=== PATIENT | male | born 1970 | race Hispanic/Latino ===

== ENCOUNTER 2020-07-20 16:19 | Emergency (ER) | payer BC ==
[2020-07-20 17:49] LABS: Absolute Lymphocytes (CBC) 2.1 K/uL (0.7-4.9); Basophils % 0.7 % (0-1.3); Hematocrit 43.7 % (39.6-49.0); MPV 8.5 fL (7.6-11.3)
[2020-07-20 18:12] LABS: ALT/SGPT 44 U/L (12-78); AST/SGOT 12 U/L (15-37); Albumin 3.6 g/dL (3.4-5.0); Alkaline Phosphatase 57 U/L (45-117); BUN Blood Urea Nitrogen 12 mg/dL (7-18); Bicarbonate 28 mmol/L (21-32); Bilirubin Direct 0.2 mg/dL (0-0.2); Bilirubin Total 0.7 mg/dL (0.2-1.0); Glucose Level 98 mg/dL (74-106); Lipase 159 U/L (73-393); Potassium 3.5 mmol/L (3.5-5.1); Sodium Level 140 mmol/L (136-145)
--- NOTE | 2020-07-20 19:37 | RAD REPORT ---
EXAM DESCRIPTION: CT - Abdomen Pelvis W Contrast - 07/20/2020 7:03 pm CLINICAL HISTORY: lower abdominal pain COMPARISON: Abdomen Pelvis Wo Contrast dated 11/28/2016 TECHNIQUE: Biphasic, helical CT imaging of the abdomen and pelvis was performed following 100 ml non -ionic IV contrast. No oral contrast administered. All CT scans are performed using dose optimization technique as appropriate and may include automated exposure control or mA/KV adjustment according to patient size. FINDINGS: No suspicious findings in the lung bases. The liver, spleen, and pancreas show no suspicious findings. Liver shows fatty infiltration. Gallblad kate is contracted. No acute gallbladder or biliary tree finding. Portal vein is normal. Symmetric renal function is seen with no hydronephrosis or suspicious renal mass. No pyelonephritis o r acute parenchymal process. No bladder abnormalities. No adrenal abnormalities. No significant prost ate abnormality seen. No stomach or small bowel abnormality seen. Appendix is normal. From cecum through the descending col on no acute colon process is seen. There is an 8 centimeter long segment of proximal sigmoid colon sh owing circumferential wall thickening. At least 1 diverticulum is seen. There is stranding in the adj acent fat. More distally the sigmoid colon and rectum show no acute findings. No free air or pneumatosis. No surgically emergent finding. No abscess. No hernia, mass or bulky ly mphadenopathy. No suspicious bony findings. IMPRESSION: Approximately 8 centimeter long segment of sigmoid colon showing circumferential wall th ickening with edema and stranding in the adjacent fat. This is a typical location for diverticulitis and this is the most likely etiology. The patient does have rare diverticula. A non diverticular infectious colitis would be possible. Colon malignancy is u nlikely but not excluded. Colonoscopy may be needed following medical management of the acute process . Diffuse fatty infiltration of the liver.
[2020-07-20] MEDS ORDERED: CIPROFLOXACIN HCL 500 MG TAB ONE (20:07)
[2020-07-20] MEDS ORDERED: metroNIDAZOLE 500 MG TABLET ONE (20:07)
--- NOTE | 2020-07-20 20:08 | ER ---
Nurse's Notes [facility] Name: Georgi Dominguez Age: 49 yrs Sex: Male : 1970 Arrival Date: 07/20/2020 Time: 16:22 Bed 20 Private MD: Diagnosis: Acute Diverticulitis Presentation: 07/20 16:57 Chief complaint: Patient states: Lower abd pain for 2 days. No fever or dysuria. ll1 Coronavirus screen: Client denies travel out of the [place] in the last 14 days. At this time, the client does not indicate any symptoms associated with coronavirus-19. Ebola Screen: Patient denies travel to an Ebola-affected area in the 21 days before illness onset. Initial Sepsis Screen: Does the patient meet any 2 criteria? No. Patient's initial sepsis screen is negative. Does the patient have a suspected source of infection? Yes: Acute abdominal pain. Risk Assessment: Do you want to hurt yourself or someone else? Patient reports no desire to harm self or others. Onset of symptoms was July 19, 2020. 16:57 Method Of Arrival: Ambulatory [facility] 16:57 Acuity: BRIANA 3 ll1 Historical: - Allergies: 16:57 hepatitis vaccines; ll1 - PMHx: 16:57 Hypertension; ll1 - PSHx: 16:57 mass removed froom neck; ll1 - Immunization history:: Flu vaccine is up to date. - Social history:: Smoking status: Patient denies any tobacco usage or history of. Screenin:00 Abuse screen: Denies threats or abuse. Nutritional screening: No deficits noted. rb3 Tuberculosis screening: No symptoms or risk factors identified. Fall Risk None identified. Assessment: 17:00 General: Appears in no apparent distress. Behavior is calm, cooperative, Denies fever. rb3 Pain: Complains of pain in abdomen Pain currently is 7 out of 10 on a pain scale. Neuro: Level of Consciousness is awake, alert, obeys commands, Oriented to person, place, time, situation. Cardiovascular: Patient's skin is warm and dry. Respiratory: Airway is patent Respiratory effort is even, unlabored, Respiratory pattern is regular, symmetrical. GI: Reports soft foamy stool. : No signs and/or symptoms were reported regarding the genitourinary system. 17:59 Reassessment: Patient appears in no apparent distress at this time. No changes from rb3 previously documented assessment. 19:15 General: Appears in no apparent distress. comfortable, Behavior is calm, cooperative, rr5 came back from CT scan. 19:15 Neuro: Level of Consciousness is awake, alert, obeys commands, Oriented to person, rr5 place, time. Cardiovascular: Capillary refill < 3 seconds Patient's skin is warm and dry. Respiratory: Airway is patent Respiratory effort is even, unlabored, Respiratory pattern is regular, symmetrical. 20:15 Reassessment: Patient appears in no apparent distress at this time. Patient is alert, rr5 oriented x 3, equal unlabored respirations, skin warm/dry/pink. discharge instruction given and explained without complaints made. Vital Signs: 16:57 BP 127 / 80; Pulse 88; Resp 17; Temp 97.8; Pulse Ox 100% ; Weight 99.79 kg; Height 5 ll1 ft. 3 in. (160.02 cm); Pain 7/10; 17:58 BP 112 / 81; Pulse 93; Resp 17; Pulse Ox 100% ; rb3 19:15 BP 115 / 79; Pulse 86; Resp 16; Pulse Ox 99% ; rr5 20:15 BP 120 / 74; Pulse 90; Resp 16; Pulse Ox 98% ; rr5 16:57 Body Mass Index 38.97 (99.79 kg, 160.02 cm) ll1 ED Course: 16:22 Patient arrived in ED. bp1 16:57 Arm band placed on Patient placed in an exam room, on a stretcher. ll1 16:58 Triage completed. ll1 16:59 Prasad Monroy PA is PHCP. jm 16:59 Jeff Renee MD is Attending Physician. jmm 17:00 Patient has correct armband on for positive identification. Bed in low position. Call rb3 light in reach. Side rails up X 1. Pulse ox on. NIBP on. 17:03 Opal Soto, ELVER is Primary Nurse. rb3 17:35 Inserted saline lock: 20 gauge in left antecubital area, using aseptic technique. Blood rb3 collected. 17:59 Warm blanket given. Pillow given. rb3 19:03 CT Abd/Pelvis - IV Contrast Only In Process Unspecified. EDMS 20:07 Dallas Hansen MD is Referral Physician. jmm 20:08 Primary Nurse role handed off by Opal Soto, RN tt3 20:15 No provider procedures requiring assistance completed. IV discontinued, intact, rr5 bleeding controlled, No redness/swelling at site. Pressure dressing applied. 20:18 Corey Betancourt, RN is Primary Nurse. rr5 Administered Medications: 19:46 Drug: Cipro (ciprofloxacin) 500 mg Route: PO; rr5 20:11 Follow up: Response: No adverse reaction rr5 19:46 Drug: Flagyl (metroNIDAZOLE) 500 mg Route: PO; rr5 20:15 Follow up: Response: No adverse reaction rr5 Outcome: 20:07 Discharge ordered by MD. jm 20:15 Discharged to home ambulatory. rr5 20:15 Condition: stable 20:15 Discharge instructions given to patient, Instructed on discharge instructions, follow up and referral plans. medication usage, Demonstrated understanding of instructions, follow-up care, medications, Prescriptions given X 4. 20:19 Patient left the ED. rr5 Signatures: Dispatcher [employer] EDMS Prasad Monroy PA PA [facility] Corey Betancourt, RN RN rr5 Willy Vivas RN RN ll1 Loly Nicole [facility] Armando Causey tt3 Opal Soto, RN RN rb3
--- NOTE | 2020-07-20 20:08 | EDPHYS ---
Physician Documentation [facility] Name: Georgi Dominguez Age: 49 yrs Sex: Male : 1970 Arrival Date: 07/20/2020 Time: 16:22 Bed 20 Private MD: DANIEL Physician Jeff Renee HPI: 07/20 17:02 This 49 yrs old Male presents to ER via Ambulatory with complaints of jmm Abdominal Pain. 17:02 The patient presents with abdominal pain. Onset: The symptoms/episode began/occurred jmm gradually, 2 day(s) ago. The symptoms do not radiate. Associated signs and symptoms: Pertinent negatives: nausea and vomiting, chest pain, constipation, diarrhea, dysuria, fever, hematuria, shortness of breath, testicular pain. Modifying factors: The symptoms are alleviated by nothing, the symptoms are aggravated by. The patient has not experienced similar symptoms in the past. Historical: - Allergies: 16:57 hepatitis vaccines; ll1 - PMHx: 16:57 Hypertension; ll1 - PSHx: 16:57 mass removed froom neck; ll1 - Immunization history:: Flu vaccine is up to date. - Social history:: Smoking status: Patient denies any tobacco usage or history of. ROS: 17:02 Constitutional: Negative for fever, chills, and weight loss, Cardiovascular: Negative jmm for chest pain, palpitations, and edema, Respiratory: Negative for shortness of breath, cough, wheezing, and pleuritic chest pain. 17:02 Abdomen/GI: Positive for abdominal pain. 17:02 All other systems are negative. Exam: 17:02 Head/Face: atraumatic. Eyes: EOMI, no conjunctival erythema appreciated ENT: Moist jmm Mucus Membranes Neck: Trachea midline, Supple Chest/axilla: Normal chest wall appearance and motion. Cardiovascular: Regular rate and rhythm. No edema appreciated Respiratory: Normal respirations, no respiratory distress appreciated 17:02 Back: Normal ROM Skin: General appearance color normal MS/ Extremity: Moves all extremities, no obvious deformities appreciated, no edema noted to the lower extremities Neuro: Awake and alert, normal gait Psych: Behavior is normal, Mood is normal, Patient is cooperative and pleasant 17:02 Constitutional: The patient appears in no acute distress, alert, awake. 17:02 Abdomen/GI: Inspection: distension, that is moderate, obese Bowel sounds: normal, Palpation: soft, moderate abdominal tenderness, in the umbilical area, suprapubic area, right lower quadrant and left lower quadrant. Vital Signs: 16:57 BP 127 / 80; Pulse 88; Resp 17; Temp 97.8; Pulse Ox 100% ; Weight 99.79 kg; Height 5 ll1 ft. 3 in. (160.02 cm); Pain 7/10; 17:58 BP 112 / 81; Pulse 93; Resp 17; Pulse Ox 100% ; rb3 19:15 BP 115 / 79; Pulse 86; Resp 16; Pulse Ox 99% ; rr5 20:15 BP 120 / 74; Pulse 90; Resp 16; Pulse Ox 98% ; rr5 16:57 Body Mass Index 38.97 (99.79 kg, 160.02 cm) ll1 MDM: 17:02 Patient medically screened. danis 20:06 Data reviewed: vital signs, nurses notes. Counseling: I had a detailed discussion with [facility] the patient and/or guardian regarding: the historical points, exam findings, and any diagnostic results supporting the discharge/admit diagnosis, lab results, radiology results, the need for outpatient follow up, to return to the emergency department if symptoms worsen or persist or if there are any questions or concerns that arise at home. ED course: Patient is alert and non toxic in appearance in the ED. Tolerates PO in the ED. ADvised to follow up with GI for further evaluation and to rule out cancer. Patient is otherwise given strict return precautions. patient understood and agrees with the plan of care. . 07/20 17:06 Order name: Basic Metabolic Panel [facility] 07/20 17:06 Order name: CBC with Diff; Complete Time: 18:01 [facility] 07/20 17:06 Order name: Hepatic Function [facility] 07/20 17:06 Order name: Lipase; Complete Time: 18:34 [facility] 07/20 17:07 Order name: Basic Metabolic Panel; Complete Time: 18:34 [facility] 07/20 17:07 Order name: Liver (Hepatic) Function; Complete Time: 18:34 [facility] 07/20 17:06 Order name: IV Saline Lock; Complete Time: 17:55 [facility] 07/20 17:06 Order name: Labs collected and sent; Complete Time: 17:55 [facility] 07/20 17:06 Order name: CT Abd/Pelvis - IV Contrast Only; Complete Time: 19:40 [facility] Administered Medications: 19:46 Drug: Cipro (ciprofloxacin) 500 mg Route: PO; rr5 20:11 Follow up: Response: No adverse reaction rr5 19:46 Drug: Flagyl (metroNIDAZOLE) 500 mg Route: PO; rr5 20:15 Follow up: Response: No adverse reaction rr5 Disposition: 07/21 07:35 Co-signature as Attending Physician, Jeff Renee MD I agree with the assessment and [facility] plan of care. Disposition: 07/20/20 20:07 Discharged to Home. Impression: Acute Diverticulitis. - Condition is Stable. - Discharge Instructions: Diverticulitis. - Prescriptions for Zofran ODT 4 mg Oral tablet,disintegrating - place 1 tablet by TRANSLINGUAL route every 4-6 hours; 20 tablet. Bentyl 20 mg Oral Tablet - take 2 tablet by ORAL route every 6 hours As needed; 40 tablet. Flagyl 500 mg Oral Tablet - take 1 tablet by ORAL route every 6 hours for 10 days; 40 tablet. Cipro 500 mg Oral Tablet - take 1 tablet by ORAL route every 12 hours for 10 days; 20 tablet. - Medication Reconciliation Form, Thank You Letter, Antibiotic Education, Prescription Opioid Use, SBAR form form. - Follow up: Dallas Hansen MD; When: 2 - 3 days; Reason: Recheck today's complaints, Continuance of care, Re-evaluation by your physician. Signatures: Dispatcher [employer] Jeff Santos MD MD cha Mickail, Joel, PA PA [facility] Corey Betancourt RN RN rr5 Willy Vivas RN RN ll1 Corrections: (The following items were deleted from the chart) 07/20 20:19 20:07 07/20/2020 20:07 Discharged to Home. Impression: Acute Diverticulitis. Condition rr5 is Stable. Forms are SBAR form, Medication Reconciliation Form, Thank You Letter, Antibiotic Education, Prescription Opioid Use. Follow up: Dallas Hansen; When: 2 - 3 days; Reason: Recheck today's complaints, Continuance of care, Re-evaluation by your physician. landry
[2020-07-20 20:28] VITALS: TEMP 97.8; O2SAT 100
[2020-07-20 20:30] VITALS: BP 112/81
== END 2020-07-20 20:19 | disposition home or self-care (01) ==
LOC: ER 16:19
DX: K57.32 Diverticulitis of large intestine without perforation or abscess without bleeding (principal); I10 Essential (primary) hypertension; Z88.7 Allergy status to serum and vaccine
CPT/HCPCS: 85025; 80048; 36415; 80076; 83690; 74177; 99284; Q9967